=== PATIENT | female | born 1960 | race Caucasian/White ===

== ENCOUNTER → 2019-11-30 | Outpatient (CLI) | payer BC ==
[~2019-11-30] MED LIST: ASCO500T8 PO; CALCIUM CITRATE PO; DOCO100C PO; IRON PO; LACT1CAP35 PO; LEVO100T5 PO; MAGN100T PO; MILK THISTL PO; MULT-516 PO
== END | disposition home or self-care (01) ==
LOC: STAR 12:34
PROVIDERS: ATTEND Surgery
DX: Z01.818 Encounter for other preprocedural examination (principal); K80.11 Calculus of gallbladder with chronic cholecystitis with obstruction
CPT/HCPCS: 93005

== ENCOUNTER 2019-12-04 07:32 | Day surgery (SDC) | payer BC ==
[~2019-12-04] VITALS: Ht 162.6 cm; Wt 70.6 kg
[2019-12-04] MEDS ORDERED: CHLORHEXIDINE 15 ML UDC ONE (08:05)
[2019-12-04] MEDS ORDERED: CHLORHEXIDINE 15 ML UDC MM ONE (08:30)
[2019-12-04] MEDS ORDERED: LACTATED RINGERS 1,000 ML IV SCH (08:30)
[2019-12-04] MEDS ORDERED: FENTANYL PF 250 MCG/5ML ONE (09:27)
[2019-12-04] MEDS ORDERED: MIDAZOLAM 1 MG/ML, 2ML ONE (09:27)
[2019-12-04] MEDS ORDERED: BUPIVACAINE/PF-EPI 0.5% 1:200K ONE (09:38)
[2019-12-04] MEDS ORDERED: PROMETHAZINE 25 MG/ML, 1ML IV PRN (10:30)
[2019-12-04] MEDS ORDERED: HYDROmorphone 1 MG/ML, 1ML INJ IVPush PRN (10:30)
[2019-12-04] MEDS ORDERED: MEPERIDINE/PF 25MG/0.5ML IVPush PRN (10:30)
[2019-12-04] MEDS ORDERED: ACETAMINOPHEN 325 MG TABLET PO PRN (10:30)
[2019-12-04] MEDS ORDERED: DIAZEPAM 5 MG/ML, 2ML IVPush PRN (10:30)
[2019-12-04] MEDS ORDERED: OXYcodone 5 MG/5 ML ORAL.SOL UDC PO PRN (10:30)
[2019-12-04] MEDS ORDERED: KETOROLAC 30 MG/1 ML IV PRN (10:30)
[2019-12-04] MEDS ORDERED: LABETALOL 5MG/ML, 20ML IV PRN (10:30)
[2019-12-04] MEDS ORDERED: hydrALAzine 20 MG/ML, 1ML IV PRN (10:30)
[2019-12-04] MEDS ORDERED: ALBUTEROL SULFATE 2.5 MG/3 ML NPPB PRN (10:30)
[2019-12-04] MEDS ORDERED: SUGAMMADEX 200 MG/2 ML IVPush ONE (10:40)
[2019-12-04] MEDS ORDERED: ROCURONIUM 10MG/ML,5ML ONE ×2 (10:47→11:23)
[2019-12-04] MEDS ORDERED: CEFAZOLIN 1,000 MG ONE ×2 (10:47→11:23)
[2019-12-04] MEDS ORDERED: ONDANSETRON 2MG/ML, 2ML ONE ×2 (10:47→11:23)
[2019-12-04] MEDS ORDERED: SUCCINYLCHOLINE 20 MG/ML, 10ML ONE ×2 (10:47→11:23)
[2019-12-04] MEDS ORDERED: GLYCOPYRROLATE 0.2MG/1ML, 5ML ONE ×2 (10:47→11:23)
[2019-12-04] MEDS ORDERED: PROPOFOL 10 MG/ML, 20ML ONE ×2 (10:47→11:23)
[2019-12-04] MEDS ORDERED: NEOSTIGMINE 1 MG/ML, 10ML ONE ×2 (10:47→11:23)
[2019-12-04] MEDS ORDERED: DEXAMETHASONE 4 MG/ML, 1ML ONE ×2 (10:47→11:23)
[2019-12-04] MEDS ORDERED: FENTANYL PF 100 MCG/2ML ONE ×2 (10:59→11:57)
[2019-12-04] MEDS: FENTANYL PF 100 MCG/2ML IV PRN ×4 (11:03→11:59)
[2019-12-04] MEDS ORDERED: KETOROLAC 30 MG/1 ML ONE (11:32)
[2019-12-04] MEDS ORDERED: OXYcodone 5 MG/5 ML ORAL.SOL UDC ONE (11:33)
[2019-12-04] MEDS ORDERED: OXYcodone/APAP 5/325MG TABLET ONE (16:58)
== END 2019-12-04 17:10 | disposition home or self-care (01) ==
LOC: OR 07:32
PROVIDERS: ATTEND Surgery
DX: K80.10 Calculus of gallbladder with chronic cholecystitis without obstruction (principal); Z11.59 Encounter for screening for other viral diseases; E78.5 Hyperlipidemia, unspecified; E03.9 Hypothyroidism, unspecified; Z79.890 Hormone replacement therapy
CPT/HCPCS: 36415; 47562; 87635; 88304; J0330; J0690; J1100; J1885; J2250; J2405; J2704; J2710; J3010; J7120